=== PATIENT | female | born 1960 | race Caucasian/White ===

== ENCOUNTER → 2017-12-03 | Outpatient (REF) | payer MEDICARE ==
[2017-12-03 20:33] LABS: REASON FOR REVIEW ANEMIA / RBC MORPH; SLIDE REVIEW Report; SOURCE PERIPHERAL SMEAR
== END ==
LOC: M LAB REF 18:21
DX: R16.1 Splenomegaly, not elsewhere classified (principal)
CPT/HCPCS: 88300

== ENCOUNTER → 2018-09-24 | Outpatient (CLI) | payer MEDICARE ==
[~2018-09-24] MED LIST: ASPI81TA45 OR; BYDU2INJ7 SC; CAL-MAG PO; JANU100T PO; LOSA25TA14 PO; MACARDIS PO; METF500T13 PO; METF500T4 OR; NEXI1CAP3 OR; VITA100T OR; VITAMIN D50000 UNT OR; XARE20TA PO
--- NOTE | 2018-09-24 12:25 | REP ---
CT chest without contrast: Low-dose study screening exam. History: Personal history of nicotine dependence. Comparison chest x-ray is from October 11, 2005[address] 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 Fusion plate is noted in the lower cervical spine. There is moderate vascular calcification including left coronary artery distribution vascular calcification. There is a 2 mm noncalcified left lower lobe pulmonary nodule peripherally in the lateral pleural angle on page 80 of 113 in today's study. No other pulmonary nodule or mass lesion is observed. There are minimal fibrotic changes in the bases anteriorly involving the right middle lobe and lingula. Study is otherwise unremarkable. Impression: Lung-RADS category 2 benign findings. Repeat screening exam recommended in 1 year. Electronically Signed by Mahesh Garzon MD 09/24/2018 01:09 P
== END ==
LOC: M RAD 10:09
PROVIDERS: ATTEND Internal Medicine Hematology & Oncology
DX: Z12.2 Encounter for screening for malignant neoplasm of respiratory organs (principal); Z87.891 Personal history of nicotine dependence; R91.1 Solitary pulmonary nodule; I25.10 Atherosclerotic heart disease of native coronary artery without angina pectoris

== ENCOUNTER → 2021-10-11 | Outpatient (CLI) | payer MEDICARE, MEDICAID ==
[~2021-10-11] MED LIST changes: +GASTROGRAFIN SOLUTION 30ML (Q9963) As Ordered ONE; +ISOVUE-370 76% 100ML VIAL As Ordered ONE; +LOSA25TA13 PO; -LOSA25TA14 PO; +METF-839 PO; +OSTE1TAB2 PO; +SEMA1PEN2 SQ
== END ==
LOC: M RAD 15:28
PROVIDERS: ATTEND Specialist
DX: D69.6 Thrombocytopenia, unspecified (principal); R16.2 Hepatomegaly with splenomegaly, not elsewhere classified; R59.0 Localized enlarged lymph nodes
CPT/HCPCS: 74177; Q9963; Q9967

== ENCOUNTER → 2023-10-09 | Outpatient (CLI) | payer MEDICARE, MEDICAID ==
[~2023-10-09] MED LIST changes: -GASTROGRAFIN SOLUTION 30ML (Q9963) As Ordered ONE; -ISOVUE-370 76% 100ML VIAL As Ordered ONE; +PANT40TA29 PO
== END ==
LOC: M RAD 13:19
PROVIDERS: ATTEND Surgery
DX: I77.9 Disorder of arteries and arterioles, unspecified (principal); I70.92 Chronic total occlusion of artery of the extremities; T87.89 Other complications of amputation stump